=== PATIENT | male | born 1945 | race Caucasian/White ===

== ENCOUNTER 2020-12-11 13:44 | Emergency (ER) | payer MEDICARE, BC ==
[2020-12-11 19:51] LABS: SARS-CoV-2 MS2 Positive; SARS-CoV-2 N Gene Negative; SARS-CoV-2 S Gene Negative; SARS-CoV-2 by NAA Not Detected (NotDetected); SARS-CoV-2 orf1ab Negative
== END 2020-12-11 14:34 | disposition home or self-care (01) ==
LOC: ERS 13:44
DX: R05 Cough (principal); Z20.822 Contact with and (suspected) exposure to COVID-19
CPT/HCPCS: 87635; 99283; U0003

== ENCOUNTER 2023-09-08 16:32 | Emergency (ER) | payer MEDICARE, BC ==
[~2023-09-08 16:32] MED LIST: Iopamidol-370 76% 500 ML MDV (1 ML CHARGE) ONE
[2023-09-08] MEDS ORDERED: Aspirin Chewable 81 MG TAB ONE (17:44)
[2023-09-08 18:23] LABS: #Monocytes 0.8 thou/uL (0.11-0.59); #Neutrophils 9.5 thou/uL (1.40-6.50); %Basophils 0.2 % (0.0-1.0); %Eosinophils 0.3 % (0.0-10.0); %Lymphocytes 11.9 % (21.0-51.0); %Monocytes 6.4 % (0.0-10.0); %Neutrophils 80.7 % (42.0-75.0); Hematocrit 39.5 % (42.0-52.0); Hemoglobin 13.4 g/dL (14.0-18.0); Mean Corpuscular HGB CONC 33.9 g/dL (32.0-36.0); Mean Corpuscular Hemoglobin 31.8 pg (27.0-31.0); Mean Corpuscular Volume 93.6 fl (78.0-98.0); Mean Platelet Volume 10.8 fL (7.4-10.4); Platelet Count 125 10x3/uL (130-400); RBC Distribution Width 14.7 % (11.5-14.5); Red Blood Cell (RBC) Count 4.22 mill/uL (4.70-6.10); White Blood Cell (WBC) Count 11.8 10x3/uL (4.8-10.8)
[2023-09-08 18:58] LABS: ALT (SGPT) 79 U/L (8-55); AST (SGOT) 137 U/L (5-34); Albumin 4.3 g/dL (3.4-4.8); Alkaline Phosphatase 112 U/L (40-110); Anion Gap 14 mmol/L (10-20); BUN (Urea Nitrogen) 20 mg/dL (8.4-25.7); Bilirubin, Total 1.5 mg/dL (0.2-1.2); Calc. Creatinine Clearance 0 mL/min (70-130); Carbon Dioxide 22 mmol/L (23-31); Chloride 106 mmol/L (98-107); Estimated GFR 90; Globulin 2.5 g/dL (2.4-3.5); Glucose 111 mg/dL (83-110); Lipase 329 U/L (8-78); Potassium 4.3 mmol/L (3.5-5.1); Protein, Total 6.8 g/dL (5.8-8.1); Sodium 138 mmol/L (136-145)
[2023-09-08 19:02] LABS: Troponin I 0.023 ng/mL (< 0.028)
[2023-09-08 20:23] LABS: Bacteria/HPF None Seen HPF (None Seen); Bilirubin Negative (Negative); Blood, Urine Negative (Negative); CAUTI Indications for Culture Dysuria,urgency,freq; Clarity Clear (Clear); Glucose, Urine (Dipstick) Greater than 1000 mg/dL (Negative); Ketone, Urine 60 mg/dL (Negative); Leukocyte Negative Leu/uL (Negative); Nitrite Negative (Negative); Protein, Urine (Dipstick) Negative (Neg-Trace); RBC/HPF 0-3 HPF (0-3); Specific Gravity, Urine 1.049 (1.002-1.036); Squamous Epithelial 0-3 HPF (0-3); Urobilinogen Normal mg/dL (Less than 2); WBC/HPF 0-3 HPF (0-3); pH, Urine 5.5 (5.0-9.0)
[2023-09-08 20:28] LABS: Urine Culture Reflex No No
[2023-09-09 00:31] LABS: Troponin I 0.029 ng/mL (< 0.028)
== END 2023-09-09 00:04 | disposition short-term general hospital (02) ==
LOC: ERS 16:32
DX: R07.9 Chest pain, unspecified (principal); R10.13 Epigastric pain; E11.9 Type 2 diabetes mellitus without complications; I10 Essential (primary) hypertension; Z79.899 Other long term (current) drug therapy
CPT/HCPCS: 36415; 71275; 74174; 80053; 81001; 83690; 84484; 85025; 93005; Q9967